=== PATIENT | female | born 1935 | race Caucasian/White ===

== ENCOUNTER 2021-02-19 21:06 | Emergency (ER) | payer MEDICARE ==
[~2021-02-19] VITALS: Ht 157.5 cm; Wt 55.8 kg
[2021-02-19 21:10] VITALS: BP 151/107
[2021-02-19] MEDS: LIDOCAINE/EPI/TETRACAINE TOPICAL GEL 3 ML. TP ONE (22:32)
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
== END 2021-02-19 23:30 | disposition home or self-care (01) ==
LOC: ER 21:06 → MERGE 21:06 → ER 23:30
DX: S51.812A Laceration without foreign body of left forearm, initial encounter (principal); W18.00XA Striking against unspecified object with subsequent fall, initial encounter; Y93.89 Activity, other specified; Y92.89 Other specified places as the place of occurrence of the external cause; Y99.8 Other external cause status
CPT/HCPCS: 99282